=== PATIENT | female | born 1950 | race African-American/Black ===

== ENCOUNTER 2017-08-14 12:18 | Inpatient (IN) | payer OTHER, MEDICAID ==
[~2017-08-14] VITALS: Ht 157.5 cm; Wt 90.7 kg
[2017-08-14] VITALS (13 sets, daily range): BP systolic 77–122; BP diastolic 43–71
[~2017-08-14 12:18] MED LIST: LOSARTAN POTASS25 MG ORAL
[2017-08-14] MEDS ORDERED: Morphine Sulfate 4mg/ml Inj IVP ONE ×2 (12:30→16:15)
--- NOTE | 2017-08-14 12:57 | Emergency Room Report ---
History of Present Illness General Chief Complaint: Syncope Source: Patient, EMS Present Illness HPI The patient presents after having a syncopal episode. She was sitting at her computer and felt dizzy and stood up try to getting to the bathroom to get a drink of water. Next she was on the floor with a pain in her ankle. Paramedics were summoned and they state she has a fractured ankle on the left- hand side. It and it's closed without laceration. The patient denies any numbness in the foot at this time. Prior to passing out she felt diaphoretic and nauseated. She received 2 mg morphine in the field. Pain still rated 10/10 now, aching and throbbing, not radiating. The patient has had syncopal episodes in the past. It's been many years since the last one. Usually when she has the flu. She's never been hospitalized for this. She denies cardiac disease, chest pain, palpitations. She's felt feverish but didn't document fever. H/O HTN. Allergies: Coded Allergies: No Known Allergies (Unverified , 08/14/17) Patient History Past Medical History: see triage record Social History: Reports: smoking - former Social History Narrative at home Reviewed Nursing Documentation: PMH: Agreed, PSxH: Agreed Nursing Documentation-PMH Past Medical History: No History, Except For Hx Hypertension: Yes Review of Systems All Other Systems: negative except mentioned in HPI Physical Exam Vital Signs Date Time Temp Pulse Resp B/P (MAP) Pulse Ox O2 Delivery O2 Flow Rate FiO2 08/14/17 12:15 80 20 116/74 98 Room Air Sp02 EP Interpretation: reviewed, normal General Appearance: well appearing, no apparent distress, GCS 15 Head: normocephalic Eyes: bilateral eye normal inspection ENT: moist mucus membranes Neck: supple Respiratory: chest non-tender, lungs clear, normal breath sounds Cardiovascular #1: regular rate, rhythm Cardiovascular #2: 2+ radial (R), 2+ dorsalis pedis (L) Gastrointestinal: normal inspection, normal bowel sounds, non tender, no mass, non-distended Musculoskeletal: back normal, digits/nails normal, no calf tenderness, pelvis stable, other - angulated and swollen L ankle - foot laterally angulated - Knee non-tender, hip not tender Neurologic: alert, oriented x3, motor strength/tone normal - except for ankle - able to move toes, DTRs symmetric, sensory intact Psychiatric: mood/affect normal Skin: normal inspection, warm/dry Procedures Joint Reduction Joint Reduction : Consent: Written Joint Reduction Site: other - L ankle Procedural Sedation: Yes Reduction Attempts: One Pre-Procedure NV Exam: Yes Post-Procedure NV Exam: Yes Post Joint Reduction Film: joint reduced Patient Tolerated: Well Complications: Other - see below Progress Splint applied by me. Position excellent with decreased pain and normal neurovasc as checked by me. Procedural Sedation Consent: Written Pre-Sedation Assessment: Eval. Immed. Prior to Sed, Pre-proc Edu. done, Plan for Sedation Discuss Airway Assessment (Malampati): II Heart: normal Lungs: normal Abdomen: normal Extremities: normal Procedures/Plans: Closed Reduction Plan for Moderate Sedation: Other - etomidate ASA Score: II - due to syncopal episode and HTN Start Time: 14:04 End Time: 14:10 Post-Sedation Assessment Time out: 14:01. Awake at 14:10. End of bedside treatment of MD 14:17 = total bedside time = 16 minutes. After etomidate, patient with some chest tightness with coughing. O2 sat and CO2 both maintained throughout. Tolerated well. Communication: No Apparent Limitation Mental Status: Awake Respiration: Unlabored Skin Condition: WNL Abdomen: WNL Nausea: NO Vomiting: NO Medical Decision Making Diagnostic Impression: Primary Impression: Syncope Qualified Codes: R55 - Syncope and collapse Additional Impression: Bimalleolar fracture Qualified Codes: S82.842A - Displaced bimalleolar fracture of left lower leg, initial encounter for closed fracture ER Course Patient presents with 2 problems. The first is syncope. Evaluation needs to exclude acute myocardial infarction, cardiac arrhythmia, significant anemia. Also need to exclude hypoglycemia and electrolyte abnormalities. The second problem is fractured and angulated left ankle. She'll probably need to have procedural sedation in order to reduce this. The x-rays are indicated in addition to that analgesia. Evaluation of syncope will be with EKG and labs. A CT is not indicated the moment. The patient's blood pressure slightly low. Given a fluid bolus in preparation to giving her analgesia. Repeat analgesia as pain still severe. Improved analgesia. See procedure notes. Ankle reduced and splinted. Greatly improved. Discussed with Dr. Arthur and Dr. Akins. Advised need to r/o cardiac cause of syncope prior to consideration for surgery. Admit telemetry. Laboratory Tests Test 08/14/17 12:40 White Blood Count 4.9 K/UL (4.8-10.8) Red Blood Count 3.66 M/UL (4.20-5.40) L Hemoglobin 10.8 G/DL (12.0-16.0) L Hematocrit 33.3 % (37.0-47.0) L Mean Corpuscular Volume 91 FL (80-99) Mean Corpuscular Hemoglobin 29.7 PG (27.0-31.0) Mean Corpuscular Hemoglobin Concent 32.6 G/DL (32.0-36.0) Red Cell Distribution Width 12.0 % (11.6-14.8) Platelet Count 178 K/UL (150-450) Mean Platelet Volume 7.4 FL (6.5-10.1) Neutrophils (%) (Auto) 68.6 % (45.0-75.0) Lymphocytes (%) (Auto) 17.7 % (20.0-45.0) L Monocytes (%) (Auto) 11.5 % (1.0-10.0) H Eosinophils (%) (Auto) 1.0 % (0.0-3.0) Basophils (%) (Auto) 1.2 % (0.0-2.0) Prothrombin Time 10.4 SEC (9.30-11.50) Prothrombin Time INR 1.0 (0.9-1.1) PTT 29 SEC (23-33) Sodium Level 142 MMOL/L (136-145) Potassium Level 3.2 MMOL/L (3.5-5.1) L Chloride Level 105 MMOL/L (98-107) Carbon Dioxide Level 29 MMOL/L (21-32) Anion Gap 8 mmol/L (5-15) Blood Urea Nitrogen 15 mg/dL (7-18) Creatinine 1.4 MG/DL (0.55-1.30) H Estimate Glomerular Filtration Rate 45.8 mL/min (>60) Glucose Level 100 MG/DL (74-106) Calcium Level 8.0 MG/DL (8.5-10.1) L Total Bilirubin 0.1 MG/DL (0.2-1.0) L Aspartate Amino Transferase (AST) 19 U/L (15-37) Alanine Aminotransferase (ALT) 12 U/L (12-78) Alkaline Phosphatase 44 U/L (46-116) L Total Creatine Kinase 103 U/L (26-308) Troponin I 0.000 ng/mL (0.000-0.056) Pro-B-Type Natriuretic Peptide 64 pg/mL (0-125) Total Protein 6.9 G/DL (6.4-8.2) Albumin 3.0 G/DL (3.4-5.0) L Globulin 3.9 g/dL Albumin/Globulin Ratio 0.8 (1.0-2.7) L EKG Diagnostic Results Rate: normal Rhythm: NSR ST Segments: no acute changes Rhythm Strip Diag. Results EP Interpretation: yes Rhythm: NSR, no PVC's, no ectopy Chest X-Ray Diagnostic Results Chest X-Ray Diagnostic Results : Chest X-Ray Ordered: Yes # of Views/Limited/Complete: 1 View Indication: Other Interpretation: no consolidation, no effusion, no pneumothorax Impression: No acute disease Electronically Signed by: Electronically signed by London Martel MD Other X-Ray Diagnostic Results Other X-Ray Diagnostic Results #1: X-Ray ordered: L ankle # of Views/Limited Vs Complete: 3 View Indication: Pain EP Interpretation: Yes Interpretation: other - bimaleolar fx, dislocation and STS Impression: Other Electronically Signed by: London Martel MD Other X-Ray Diagnostic Results #2: X-Ray ordered: L ankle # of Views/Limited Vs Complete: 2 View Indication: Other EP Interpretation: Yes Interpretation: no dislocation, other - bimaleolar fx, good reduction, STS Impression: Other Electronically Signed by: London Martel MD Last Vital Signs Date Time Temp Pulse Resp B/P (MAP) Pulse Ox O2 Delivery O2 Flow Rate FiO2 08/14/17 16:30 98.5 76 22 106/58 100 Room Air Status: improved Disposition: ADMITTED INPATIENT Condition: Serious London Martel M.D. Aug 14, 2017 12:57
[2017-08-14 13:06] LABS: BASOPHILS % (AUTO) 1.2 % (0.0-2.0); HEMATOCRIT 33.3 % (37.0-47.0); HEMOGLOBIN 10.8 G/DL (12.0-16.0); LYMPHOCYTES % (AUTO) 17.7 % (20.0-45.0); MEAN CORPUSCULAR VOLUME 91 FL (80-99); MONOCYTES % (AUTO) 11.5 % (1.0-10.0); NEUTROPHILS % (AUTO) 68.6 % (45.0-75.0); PLATELET COUNT 178 K/UL (150-450); RED BLOOD COUNT 3.66 M/UL (4.20-5.40); WHITE BLOOD COUNT 4.9 K/UL (4.8-10.8)
[2017-08-14 13:18] LABS: ANION GAP 8 mmol/L (5-15); BLOOD UREA NITROGEN 15 mg/dL (7-18); CARBON DIOXIDE 29 MMOL/L (21-32); CHLORIDE 105 MMOL/L (98-107); CREATININE 1.4 MG/DL (0.55-1.30); POTASSIUM 3.2 MMOL/L (3.5-5.1); SODIUM 142 MMOL/L (136-145)
[2017-08-14] MEDS ORDERED: fentaNYL 100 mcg/2 mL IV ONE (13:30)
[2017-08-14 13:31] LABS: ALANINE AMINOTRANSFERASE 12 U/L (12-78); ALBUMIN/GLOBULIN RATIO 0.8 (1.0-2.7); ALKALINE PHOSPHATASE 44 U/L (46-116); ASPARTATE AMINO TRANSFERASE 19 U/L (15-37); BILIRUBIN,TOTAL 0.1 MG/DL (0.2-1.0); CREATINE KINASE 103 U/L (26-308)
[2017-08-14] MEDS ORDERED: Potassium Chloride 20 MEQ in NS 275 ML IVPB ONE (13:45)
[2017-08-14] MEDS ORDERED: Etomidate 40mg/20ml Inj IV ONE (13:45)
[2017-08-14] MEDS ORDERED: HYDROcodone/Acetamin 10/325 tab ORAL PRN (17:15)
[2017-08-14] MEDS: Norco 5mg/325mg tab ORAL PRN (18:00)
[2017-08-14] MEDS: Heparin 5000 units/ml inj SUBQ SCH (22:04)
[2017-08-15] VITALS (13 sets, daily range): BP systolic 109–153; BP diastolic 65–92
[2017-08-15] MEDS: Norco 5mg/325mg tab ORAL PRN ×3 (02:38→23:28)
[2017-08-15] MEDS: Heparin 5000 units/ml inj SUBQ SCH ×2 (09:00→21:00)
--- NOTE | 2017-08-15 09:54 | Diagnostic Imaging Report ---
Indication: Shortness of breath Technique: One view of the chest Comparison: none Findings: Lungs and pleural spaces are clear. Heart size is normal Impression: No acute process This agrees with the preliminary interpretation provided by the emergency room physician
--- NOTE | 2017-08-15 09:55 | Diagnostic Imaging Report ---
Indication: Trauma, pain, status post fall Technique: 3 views of the left ankle Comparison: none Findings: There is an angulated fracture of the distal fibular diaphysis. There is a comminuted fracture of the medial malleolus. There is lateral subluxation of the talus by one half bone width. Impression: Complex ankle fracture with subluxation, as described This agrees with the preliminary interpretation provided by the emergency room physician
--- NOTE | 2017-08-15 09:58 | Diagnostic Imaging Report ---
Indication: Postreduction Technique: 3 views of the left ankle Comparison: none Findings: Improved alignment of previously demonstrated ankle fracture/subluxation, post closed reduction and placement of a plaster splint Impression: Improved postreduction alignment of previously demonstrated ankle fracture/subluxation This agrees with the preliminary interpretation provided by the emergency room physician
[2017-08-15] MEDS: Acetaminophen 500mg (ES) tab ORAL PRN ×2 (12:28→22:20)
--- NOTE | 2017-08-15 16:15 | History and Physical Report ---
DATE OF ADMISSION: 08/14/2017 CHIEF COMPLAINT: Syncopal episode. HISTORY OF PRESENT ILLNESS: This is a 67-year-old female who had a syncopal episode. The patient got dizzy as she stood up getting to the bathroom. The patient then tripped and felt pain in the ankle. She came to the ER and noticed sharp pain in the ankle. There was evidence in the ED of a fracture of the ankle. The patient is awaiting surgery to her ankle. PAST MEDICAL HISTORY: Hypertension. HOME MEDICATIONS: Tylenol p.r.n. and losartan ALLERGIES: No known drug allergies. FAMILY HISTORY: Unremarkable. SOCIAL HISTORY: She lives at home. HABITS: She is nonsmoker and nondrinker. There is no history of illicit drug abuse. REVIEW OF SYSTEMS: HEENT: Hearing and eyesight are normal. ENDOCRINE: No history of diabetes, thyroid, or adrenal problems. RESPIRATORY: She denies shortness of breath, cough, or hemoptysis. CARDIOVASCULAR: She denies chest pain or palpitations. GASTROINTESTINAL: No history of hematochezia, melena, hematemesis, diarrhea, or constipation. GENITOURINARY: She denies dysuria, frequency, urgency, or hematuria. PHYSICAL EXAMINATION: GENERAL: This is an elderly female, who is currently in no acute distress. VITAL SIGNS: Blood pressure 120/70, pulse 80 and regular, respirations 20, and temperature 98 degrees. HEENT: The head is normocephalic and atraumatic. Pupils are equal, round, and reactive to light and accommodation consensually. NECK: Supple. Trachea midline. There was no lymphadenopathy or thyromegaly. LUNGS: Clear to auscultation and percussion. HEART: Regular rate and rhythm without rubs, murmurs, or gallops. ABDOMEN: Soft and nontender. Bowel sounds were active. EXTREMITIES: No clubbing, cyanosis, or edema. NEUROLOGICAL: She is alert and oriented x4. Cranial nerves II through XII intact. LABORATORY AND ANCILLARY DATA: X-ray of the ankle shows bimalleolar fracture. CBC within normal limits. BMP, potassium 3.2, creatinine 1.4, otherwise within normal limits. EKG, normal sinus rhythm. ASSESSMENT: Bimalleolar fracture, left ankle. PLAN: 1. The patient is due for surgery. 2. Proceed with surgery. Aiden Arthur M.D. DR: HUSSAIN JOB#: [id number] CC:
[2017-08-15] MEDS ORDERED: NeoSporin Gu Irrig 1ml Amp IRRIG ONE (17:22)
[2017-08-15] MEDS ORDERED: Ropivacaine 5mg/ml Vial 30ml INJ ONE (17:22)
[2017-08-15] MEDS ORDERED: Bacitracin 50000 Units Vial ONE (17:22)
[2017-08-15] MEDS ORDERED: Bupivacaine 0.25% Inj 30ml INJ ONE (17:22)
[2017-08-15] MEDS ORDERED: Propofol 200mg/20ml IV ONE (17:56)
[2017-08-15] MEDS ORDERED: LR 1000ml ONE (18:00)
[2017-08-15] MEDS ORDERED: Sterile Water Irrig 1000ml IRRIG ONE (18:00)
[2017-08-15] MEDS ORDERED: NS Irrig 1000ml ONE (18:00)
[2017-08-15] MEDS ORDERED: fentaNYL 100 mcg/2 mL IV ONE (18:00)
[2017-08-15] MEDS ORDERED: Midazolam 2mg/2ml Inj ONE (18:00)
--- NOTE | 2017-08-15 18:16 | Operative Note - PDOC ---
Operative Note Operative Note Pre-op Diagnosis: left ankle fracture Procedure: left ankle orif Post-op Diagnosis: same as pre-op plus Operative Findings: consistent w/pre-op dx studies Anesthesia: regional, MAC Specimen: none Complications: none Condition: stable Estimated Blood Loss: none Implant(s) used?: Yes MARY ANN GOLDSTEIN Aug 15, 2017 18:16
--- NOTE | 2017-08-15 18:16 | Pre-Procedure Note/Attestation ---
Pre-Procedure Note/Attestation Complete Prior to Procedure Planned Procedure: left Procedure Narrative: ankle orif Indications for Procedure Pre-Operative Diagnosis: left ankle fracture Attestation I attest that I discussed the nature of the procedure; its benefits; risks and complications; and alternatives (and the risks and benefits of such alternatives ), prior to the procedure, with the patient (or the patient's legal telesales representative). I attest that, if there was a reasonable possibility of needing a blood transfusion, the patient (or the patient's legal telesales representative) was given the [facility] standardized written summary, pursuant to the John Pepito Blood Safety Act ([place] Health and Safety Code # 1645, as amended). I attest that I re-evaluated the patient just prior to the surgery and that there has been no change in the patient's H&P, except as documented below: MARY ANN GOLDSTEIN Aug 15, 2017 18:16
[2017-08-15] MEDS ORDERED: HYDROmorphone 1mg/ml Carpuject SUBQ PRN (18:30)
[2017-08-15] MEDS ORDERED: Hydromorphone 0.5mg/0.5ml inj SUBQ PRN (18:30)
--- NOTE | 2017-08-15 18:44 | Immediate Post-Op Evaluation ---
Immediate Post-Op Evalulation Immediate Post-Op Evalulation Procedure: ORIF left ankle Date of Evaluation: Aug 15, 2017 Time of Evaluation: 19:00 IV Fluids: 800 Blood Pressure Systolic: 132 Blood Pressure Diastolic: 81 Pulse Rate: 73 Respiratory Rate: 19 O2 Sat by Pulse Oximetry: 98 Temperature (Fahrenheit): 99.0 Pain Score (1-10): 0 Nausea: No Vomiting: No Complications No complication Patient Status: awake, patent, none Hydration Status: adequate Drug: Ancef Given Within 1 Hr of Incision: Yes Time Given: 18:15 JEANETTE HARO M.D. Aug 15, 2017 18:44
[2017-08-15] MEDS ORDERED: DiphenhydrAMINE 50mg/ml Inj IVP PRN (18:45)
[2017-08-15] MEDS ORDERED: Hydromorphone 0.5mg/0.5ml inj IVP PRN (18:45)
[2017-08-15] MEDS ORDERED: LORazepam Inj 2mg/ml 1ml IV PRN (18:45)
--- NOTE | 2017-08-15 18:49 | Anethesia Preoperative Eval ---
Anesthesia Pre-op PMH/ROS General Date of Evaluation: Aug 15, 2017 Time of Evaluation: 17:45 Anesthesiologist: Erik ASA Score: ASA 2 Mallampati Score Class I : Soft palate, uvula, fauces, pillars visible Class II: Soft palate, uvula, fauces visible Class III: Soft palate, base of uvula visible Class IV: Only hard plate visible Mallampati Classification: Class II Surgeon: Tashi Diagnosis: Left ankle fracture Surgical Procedure: ORIF left ankle Family History: no anesthesia problems Allergies: Coded Allergies: No Known Allergies (Unverified , 08/14/17) Past Medical History Cardiovascular: Reports: HTN, other - Syncopal episode Pulmonary: Denies: asthma, COPD, BRET, other Gastrointestinal/Genitourinary: Denies: GERD, CRI, ESRD, other Neurologic/Psychiatric: Denies: dementia, CVA, depression/anxiety, TIA, other Endocrine: Denies: DM, hypothyroidism, steroids, other HEENT: Denies: cataract (L), cataract (R), glaucoma, [place] (L), [place]A (R), other Hematology/Immune: Denies: anemia, DVT, bleeding disorder, other Musculoskeletal/Integumentary: Reports: OA, Denies: RA, DJD, DDD, edema, other PMH Narrative: HTN, OA, ?syncope? PSxH Narrative: Right CTR, STEPHON Anesthesia Pre-op Phys. Exam Physician Exam Last Vital Signs Date Time Temp Pulse Resp B/P (MAP) Pulse Ox O2 Delivery O2 Flow Rate FiO2 08/15/17 16:00 97.2 75 21 128/76 97 Room Air Constitutional: NAD Neurologic: CN 2-12 intact Cardiovascular: RRR, no M/R/G Respiratory: CTA Gastrointestinal: S/NT/ND Airway Exam Mallampati Score: Class II MO: full ROM: full Teeth: intact Anesthesia Pre-op A/P Labs Increased Bun & Cr, decreased K+...otherwise wnl Studies Pre-op Studies: EKG - NSR Risk Assessment & Plan Assessment: Left ankle fracture. Patient with holter monitor. Plan: GA, LMA, popliteal block for post op pain Status Change Before Surgery: No Pre-Antibiotics Drug: Ancef Given Within 1 Hr of Incision: Yes Time Given: 18:15 JEANETTE HARO M.D. Aug 15, 2017 18:49
--- NOTE | 2017-08-15 19:59 | 48 Hour Post Anesthesia Eval ---
Post Anesthesia Evaluation Procedure: ORIF left ankle Date of Evaluation: Aug 15, 2017 Time of Evaluation: 19:30 Blood Pressure Systolic: 149 0: 84 Pulse Rate: 79 Respiratory Rate: 17 O2 Sat by Pulse Oximetry: 100 Airway: patent Nausea: No Vomiting: No Pain Intensity: 2 Hydration Status: adequate Cardiopulmonary Status: Stable Mental Status/LOC: patient returned to baseline Follow-up Care/Observations: As per surgery Post-Anesthesia Complications: No anesthetic complication Follow-up care needed: N/A JEANETTE HARO M.D. Aug 15, 2017 19:59
[2017-08-15] MEDS ORDERED: LR 1000ml 1,000 ML IVLG SCH (20:00)
[2017-08-15] MEDS ORDERED: Meperidine 50mg/ml Inj(FOR RIGORS ONLY) IVP ONE (20:00)
[2017-08-15] MEDS: D5 1/2NS 1,000 ML IV SCH (21:16)
[2017-08-15] MEDS: oxyCONTIN 20mg tab ORAL SCH (21:17)
[2017-08-16] VITALS (7 sets, daily range): BP systolic 112–142; BP diastolic 65–84
--- NOTE | 2017-08-16 03:30 | Consultation ---
DATE OF CONSULTATION: 08/14/2017 ORTHOPEDIC CONSULTATION CONSULTING PHYSICIAN: Ady Akins M.D. CHIEF COMPLAINT: Left ankle pain. HISTORY OF PRESENT ILLNESS: The patient is a pleasant 67-year-old female who fell. She took her hypertensive medications with relatively normal pressures. It sounds like as a vasovagal hypertensive episode. She subsequently presented to the ER, had a deformity of her left ankle. Imaging studies showed a fracture dislocation of the left ankle. PAST MEDICAL HISTORY: Hypertension. MEDICATIONS: Lovastatin. ALLERGIES: None. SOCIAL HISTORY: The patient lives at home. Does not smoke or drink. FAMILY HISTORY: Noncontributory. PHYSICAL EXAMINATION: GENERAL: The patient is alert and oriented. She is resting comfortably in exam bed. VITAL SIGNS: Stable vital signs. EXTREMITIES: Left leg appears to be in a posterior splint. Posterior calf is soft. Neurovascular exam is grossly intact. IMAGING: Imaging studies for the left ankle shows a transverse fracture of the medial malleolus with a transverse proximal fracture of the proximal fibula widening the syndesmosis. ASSESSMENT: Left ankle fracture dislocation. DISCUSSION: At this point, what I am going to do is make her NPO after midnight in anticipation of surgery on Tuesday. Risks, limitations, expectations, and complications of procedure were discussed in detail. All questions addressed. We are going to elevate and ice the extremity overnight and she is medically optimized for surgery. We will proceed with surgery tomorrow. Otherwise, we want to delay it until she is medically optimized. Alternatives also discussed with the patient, but at this point, there is really no nonsurgical alternative. She has a completely unstable ankle fracture and necessitates fixation. Ady Akins M.D. DR: GISSELL JOB#: [id number] CC: EVANS
--- NOTE | 2017-08-16 05:00 | Operative Note - Dictated ---
DATE OF OPERATION: 08/15/2017 PREOPERATIVE DIAGNOSES: 1. Left bimalleolar ankle fracture dislocation. 2. Left syndesmotic ligament rupture. SURGEON: Ady Akins M.D. ANESTHESIA: General with popliteal block. INDICATION FOR PROCEDURE: The patient is pleasant female who sustained a mechanical fall. She was diagnosed with a displaced ankle fracture. She was indicative of operative fixation and open repair of the syndesmosis. Risks, limitations, expectations, and complications of the procedure were discussed in detail. All questions were addressed. DESCRIPTION OF PROCEDURE: An informed consent was obtained. The patient was brought to the operative room and placed under general anesthesia. The patient was then carefully placed. A tourniquet was applied on the left proximal thigh. Left leg was prepped and draped in a sterile manner. Time-out was performed. Ancef was administered. A lateral skin incision was then marked out. An Esmarch was used to exsanguinate the extremity. Skin was incised. Blunt dissection down to the fibula was performed. Peroneal tendons were mobilized off the lateral aspect of the fibula. The area where a short oblique fracture on the fibula was identified, reduction clamp was placed and once this was reduced, mortise was well reduced and clear space as well as the distal syndesmosis was well maintained. At this point, a six-hole plate was selected. Nonlocking screws were then placed proximally and distally. Care was taken to make sure that the plate was posterior to allow trajectory for the syndesmosis repair. Multiple close screws were then placed and imaging showed good overall reduction of the fracture and good re-creation of the fibula in terms of the length. There was comminution of the fracture site, which was visualized and bridge plated. Once that was completed, two guidewires were placed the medial malleolus, two 34 mm partially threaded screws were then placed and cinched down. Once that was completed, a TightRope device to repair the syndesmosis was placed. The first anchor seen not deployed completely, so was removed and a second anchor was then placed. This was more superior. External rotation stress test showed no widening of the distal syndesmosis with medial clear space. At this point, the wound was copiously irrigated. The skin was approximated using 2-0 Vicryl, 3-0 Monocryl, and Steri-Strips. A posterior splint was applied. The patient was awoken and taken to recovery room. Prior to taking to the recovery room, a popliteal block was placed. ESTIMATED BLOOD LOSS: Minimal. COMPLICATIONS: None. SPECIMENS: None. IMPLANTS: Include Kamilla distal third tibial plate, two 34 partially-threaded screws, and two TightRope syndesmotic repair anchors. Ady Akins M.D. DR: GISSELL JOB#: [id number] CC: EVANS
[2017-08-16] MEDS: D5 1/2NS 1,000 ML IV SCH (08:00)
[2017-08-16] MEDS: Docusate 100mg cap ORAL SCH ×3 (08:36→18:02)
[2017-08-16] MEDS: oxyCONTIN 20mg tab ORAL SCH ×2 (08:37→20:56)
[2017-08-16] MEDS: Heparin 5000 units/ml inj SUBQ SCH ×2 (08:38→20:57)
--- NOTE | 2017-08-16 08:55 | Diagnostic Imaging Report ---
Indication: Ankle fracture, intraoperative imaging Technique: Intraoperative images Comparison: 08/14/2017 Findings: Intraoperative images document repair of previously demonstrated tibial and fibular fracture/subluxation with lateral tibial sideplate screws, medial malleolar screw Impression: Intraoperative imaging, as described
[2017-08-16] MEDS: Norco 5mg/325mg tab ORAL PRN ×2 (09:48→16:42)
--- NOTE | 2017-08-16 10:51 | General Progress Note ---
Assessment/Plan Assessment/Plan Continue pain control. Monitor Temp watch for infection Subjective Allergies: Coded Allergies: No Known Allergies (Unverified , 08/14/17) Subjective POD # 1. c/o pain Objective Last 24 Hour Vital Signs Date Time Temp Pulse Resp B/P (MAP) Pulse Ox O2 Delivery O2 Flow Rate FiO2 08/16/17 08:00 99.0 88 18 142/81 98 Nasal Cannula 2.0 08/16/17 04:00 67 08/16/17 04:00 97.5 62 18 118/67 95 Nasal Cannula 2.0 08/16/17 01:00 98.4 08/16/17 00:30 99.0 08/16/17 00:00 101.1 71 16 142/84 100 Nasal Cannula 3.0 08/16/17 00:00 71 08/15/17 23:19 101.1 08/15/17 22:00 101.7 70 16 140/83 100 Nasal Cannula 3.0 08/15/17 21:40 74 08/15/17 21:00 Nasal Cannula 3.0 08/15/17 21:00 98.4 73 18 148/82 95 08/15/17 20:45 98.8 82 14 145/88 100 Nasal Cannula 3.0 08/15/17 20:30 75 19 153/92 100 Nasal Cannula 3.0 08/15/17 20:29 98.8 08/15/17 20:20 80 14 137/91 100 Nasal Cannula 3.0 08/15/17 20:10 79 14 124/74 99 Simple Mask 6.0 08/15/17 20:00 76 13 143/86 99 Simple Mask 6.0 08/15/17 19:59 79 17 100 08/15/17 19:57 73 19 98 08/15/17 19:55 71 17 149/84 99 Simple Mask 6.0 08/15/17 19:50 99.0 72 17 132/81 98 Simple Mask 6.0 08/15/17 16:00 97.2 75 21 128/76 97 Room Air 08/15/17 16:00 82 08/15/17 12:00 78 08/15/17 11:58 97.6 69 20 136/85 99 Room Air Intake and Output 08/15/17 08/16/17 18:59 06:59 Intake Total 1715 ml Balance 1715 ml Intake Oral 240 ml IV Total 675 ml Hemodialysis 800 ml # Voids 3 Height (Feet): 5 Height (Inches): 2.00 Weight (Pounds): 200 Objective Had low grade fever. CV RR Lungs CTA Abd SNT. BS + E L ankle dressed AZUL GONZALEZ Aug 16, 2017 10:51
[2017-08-16] MEDS ORDERED: D5 1/2NS 1000ml IV ONE (14:56)
[2017-08-16] MEDS: Acetaminophen 500mg (ES) tab ORAL PRN (23:41)
[2017-08-17] VITALS: BP 122/78
[2017-08-17] MEDS: Norco 5mg/325mg tab ORAL PRN ×3 (03:13→19:06)
[2017-08-17 04:00] VITALS: BP 125/83
[2017-08-17 08:00] VITALS: BP 125/83
[2017-08-17] MEDS: Docusate 100mg cap ORAL SCH ×3 (08:19→17:53)
[2017-08-17] MEDS: oxyCONTIN 20mg tab ORAL SCH ×2 (08:20→21:24)
[2017-08-17] MEDS: Heparin 5000 units/ml inj SUBQ SCH ×2 (08:21→21:23)
--- NOTE | 2017-08-17 10:21 | General Progress Note ---
Assessment/Plan Assessment/Plan Continue pain control. Monitor Temp watch for infection DC per Ortho after dressing change. Subjective Allergies: Coded Allergies: No Known Allergies (Unverified , 08/14/17) Subjective POD # 2. c/o pain Objective Last 24 Hour Vital Signs Date Time Temp Pulse Resp B/P (MAP) Pulse Ox O2 Delivery O2 Flow Rate FiO2 08/17/17 08:00 98.4 83 18 125/83 96 Nasal Cannula 1.0 08/17/17 08:00 78 08/17/17 04:00 75 08/17/17 04:00 98.1 83 18 125/83 98 Nasal Cannula 1.0 08/17/17 02:00 99.1 08/17/17 00:40 100.2 08/17/17 00:40 100.2 08/17/17 00:00 77 08/17/17 00:00 101.7 86 18 122/78 99 Nasal Cannula 1.0 08/16/17 21:00 99.0 99 Nasal Cannula 1.0 08/16/17 20:00 Room Air 08/16/17 20:00 86 08/16/17 20:00 100.2 89 18 138/77 96 08/16/17 16:00 98.8 83 18 131/72 99 Room Air 08/16/17 16:00 99 08/16/17 15:00 98.1 84 20 117/65 98 Room Air 08/16/17 12:00 86 08/16/17 12:00 100.0 86 18 112/68 98 Nasal Cannula 2.0 Intake and Output 08/16/17 08/17/17 19:00 07:00 Intake Total 995 ml 240 ml Output Total 300 ml 400 ml Balance 695 ml -160 ml Intake Oral 920 ml 240 ml IV Total 75 ml Output Urine Total 300 ml 400 ml # Voids 1 Height (Feet): 5 Height (Inches): 2.00 Weight (Pounds): 200 Objective Had low grade fever. CV RR Lungs CTA Abd SNT. BS + E L ankle dressed COLTENBJORNDARELLAZUL Aug 17, 2017 10:21
[2017-08-17 11:08] LABS: BASOPHILS % (AUTO) 0.4 % (0.0-2.0); EOSINOPHILS % (AUTO) 0.1 % (0.0-3.0); HEMATOCRIT 29.8 % (37.0-47.0); HEMOGLOBIN 9.8 G/DL (12.0-16.0); LYMPHOCYTES % (AUTO) 29.1 % (20.0-45.0); MEAN CORPUSCULAR VOLUME 91 FL (80-99); MONOCYTES % (AUTO) 10.4 % (1.0-10.0); PLATELET COUNT 158 K/UL (150-450); RED BLOOD COUNT 3.26 M/UL (4.20-5.40); RED CELL DISTRIBUTION WIDTH 12.1 % (11.6-14.8)
[2017-08-17 11:44] LABS: ALANINE AMINOTRANSFERASE 19 U/L (12-78); ALBUMIN 2.7 G/DL (3.4-5.0); ALBUMIN/GLOBULIN RATIO 0.7 (1.0-2.7); ALKALINE PHOSPHATASE 38 U/L (46-116); ANION GAP 8 mmol/L (5-15); ASPARTATE AMINO TRANSFERASE 34 U/L (15-37); BILIRUBIN,TOTAL 0.3 MG/DL (0.2-1.0); BLOOD UREA NITROGEN 9 mg/dL (7-18); CALCIUM 8.2 MG/DL (8.5-10.1); CARBON DIOXIDE 29 MMOL/L (21-32); CHLORIDE 101 MMOL/L (98-107); CREATININE 1.1 MG/DL (0.55-1.30); POTASSIUM 3.6 MMOL/L (3.5-5.1); SODIUM 138 MMOL/L (136-145)
[2017-08-17 12:00] VITALS: BP 111/72
[2017-08-17] MEDS ORDERED: Milk of Magnesia 30ml Ud ORAL PRN (14:15)
[2017-08-17 16:00] VITALS: BP 120/73
[2017-08-17 20:05] VITALS: BP 114/63
[2017-08-18] VITALS: BP 114/71
[2017-08-18 04:00] VITALS: BP 128/68
[2017-08-18 08:00] VITALS: BP 109/65
[2017-08-18] MEDS: oxyCONTIN 20mg tab ORAL SCH (08:08)
[2017-08-18] MEDS: Docusate 100mg cap ORAL SCH ×2 (08:09→13:00)
[2017-08-18] MEDS: Heparin 5000 units/ml inj SUBQ SCH (08:09)
--- NOTE | 2017-08-19 14:19 | Discharge Summary ---
Discharge Summary Hospital Course Date of Admission Aug 14, 2017 at 13:56 Date of Discharge Aug 18, 2017 at 14:00 Admitting Diagnosis syncope/bimaleolar fracture HPI Barbara Ramirez is a 67 year old female who was admitted on Aug 14, 2017 at 13:56 for Syncope Hospital Course [id number] Discharge Discharge Disposition Patient was discharged to Home with Home Health(06) Discharge Diagnoses: Eva Ricketts NP Aug 19, 2017 14:19
--- NOTE | 2017-08-20 00:45 | Discharge Summary 2 SIG ---
DATE OF ADMISSION: 08/14/2017 DATE OF DISCHARGE: 08/18/2017 SENIOR ANALYST: Ady Akins M.D. BRIEF HOSPITAL COURSE: The patient is a 67-year-old female, who had a syncopal episode. She got dizzy, stood up, as she was getting to the bathroom, she then tripped and fell, pain on the ankle. She came to the ER where on evaluation ankle x-ray showed complex ankle fracture with subluxation. On evaluation at ED, splint was applied. She underwent closed reduction. She was given IV fluids and pain medications. Ankle was reduced and splinted. She was then admitted to telemetry for further orthopedic evaluation. She was seen by Dr. Akins. Review of imaging was done. The patient has left ankle fracture dislocation. On 08/15/2017 underwent left ankle ORIF surgery. Postoperatively, she was given pain management. She underwent PT and OT evaluation. Diet was advanced. She was eventually discharged home. FINAL DIAGNOSIS: Left ankle fracture dislocation status post left ankle open reduction and internal fixation. DISPOSITION: The patient was discharged home with home health. DISCHARGE MEDICATIONS: Refer to medication list. Aiden Arthur M.D. I have been assigned to dictate discharge summary on this account and I was not involved in the patient's management. Eva Ricketts N.P. DR: JAIMIE JOB#: [id number] CC: EVANS
--- NOTE | 2017-08-22 13:51 | Cardiology Report ---
APPROVED REPORT EKG Measurement Heart [id number] Normal sinus rhythm Nonspecific T wave abnormality Abnormal ECG
== END 2017-08-18 14:00 | disposition home health service (06) | DRG 494 ==
LOC: EDBD 12:18 → EMR 13:38 → 2E 13:56 → EDBEDREQ 15:19
PROC: 0MQR0ZZ Repair Left Ankle Bursa and Ligament, Open Approach (ICD-10-PCS; principal; 2017-08-15 17:00)
PROC: 0QSK04Z Reposition Left Fibula with Internal Fixation Device, Open Approach (ICD-10-PCS; principal; 2017-08-15 17:00)
PROC: 0QSH04Z Reposition Left Tibia with Internal Fixation Device, Open Approach (ICD-10-PCS; principal; 2017-08-15 17:00)
DX: S82.842A Displaced bimalleolar fracture of left lower leg, initial encounter for closed fracture (principal); I10 Essential (primary) hypertension; R55 Syncope and collapse; W18.30XA Fall on same level, unspecified, initial encounter; S93.491A Sprain of other ligament of right ankle, initial encounter; Z87.891 Personal history of nicotine dependence
CPT/HCPCS: 36415; 71045; 76001; 80053; 82550; 83735; 83880; 84484; 85025; 85610; 85730; 86710; 86850; 86900; 86901; 93005; 94003; 94150; 99285; J2250; J2405